=== PATIENT | female | born 1945 | race Caucasian/White ===

== ENCOUNTER → 2017-02-06 | Outpatient (CLI) | payer MEDICARE ==
[~2017-02-06] MED LIST: ASPI-496 PO; CALC-451 PO; CBD TP; CHOL20003 PO; CITA40TA5 PO; DIAZ5TAB PO; HYDR-3138 PO; LACT1CAP40 PO; LISI5TAB7 PO; TRIA1CAP3 PO
== END | disposition home or self-care (01) ==
LOC: LAB 12:09
PROVIDERS: ATTEND Nurse Practitioner Family
DX: C50.919 Malignant neoplasm of unspecified site of unspecified female breast (principal); F41.9 Anxiety disorder, unspecified; I10 Essential (primary) hypertension; M19.90 Unspecified osteoarthritis, unspecified site; R94.6 Abnormal results of thyroid function studies
CPT/HCPCS: 36415; 80061; 82306; 83036; 84436; 84443; 84481; 85025

== ENCOUNTER → 2017-02-06 | Outpatient (CLI) | payer MEDICARE ==
[2017-02-06 12:44] LABS: BLOOD UREA NITROGEN 14 mg/dL (7-18)
[2017-02-06 12:47] LABS: ASPARTATE AMINO TRANSFERASE 23 U/L (15-37)
== END | disposition home or self-care (01) ==
LOC: STAR 10:45
PROVIDERS: ATTEND Surgery
DX: Z01.818 Encounter for other preprocedural examination (principal); D05.12 Intraductal carcinoma in situ of left breast
CPT/HCPCS: 36415; 80053; 93005

== ENCOUNTER 2017-02-17 10:36 | Observation (INO) | payer MEDICARE ==
[2017-02-06 11:36] VITALS: BP 147/84
[~2017-02-17] VITALS: Ht 154.9 cm; Wt 72.8 kg
[2017-02-17] MEDS ORDERED: LACTATED RINGERS 1,000 ML IV SCH (10:59)
[2017-02-17] MEDS ORDERED: LIDOCAINE 1%, 2ML SQ PRN (11:00)
[2017-02-17] MEDS ORDERED: SODIUM BICARBONATE 4.2%, 5ML ONE (12:05)
[2017-02-17] MEDS ORDERED: LIDOCAINE 1%, 20ML ONE (12:05)
[2017-02-17] MEDS ORDERED: BUPIVACAINE/PF 0.25% ONE (13:26)
[2017-02-17] MEDS ORDERED: FENTANYL PF 250 MCG/5ML ONE (13:30)
[2017-02-17] MEDS ORDERED: MIDAZOLAM 1 MG/ML, 2ML ONE (13:30)
[2017-02-17] MEDS ORDERED: CEFAZOLIN 1,000 MG ONE ×2 (13:41→13:54)
[2017-02-17] MEDS ORDERED: ISOSULFAN BLUE 10 MG/ML, 5ML IV ONE (13:41)
[2017-02-17] MEDS ORDERED: GENTAMICIN 80 MG/2 ML ONE (13:42)
[2017-02-17] MEDS ORDERED: BUPIVACAINE/PF-EPI 0.5% 1:200K ONE (13:42)
[2017-02-17] MEDS ORDERED: BACITRACIN 50,000 UNIT ONE (13:42)
[2017-02-17] MEDS ORDERED: PROPOFOL 10 MG/ML, 20ML ONE (13:54)
[2017-02-17] MEDS ORDERED: ONDANSETRON 2MG/ML, 2ML ONE (13:54)
[2017-02-17] MEDS ORDERED: NEOSTIGMINE 1 MG/ML, 10ML ONE (13:54)
[2017-02-17] MEDS ORDERED: ROCURONIUM 10 MG/ML ONE (13:54)
[2017-02-17] MEDS ORDERED: GLYCOPYRROLATE 0.2MG/1ML ONE (13:54)
[2017-02-17] MEDS ORDERED: DEXAMETHASONE 4 MG/ML, 1ML ONE (13:54)
[2017-02-17] MEDS ORDERED: HYDROmorphone 1 MG/ML, 1ML ONE (14:54)
[2017-02-17] MEDS ORDERED: MEPERIDINE/PF 25MG/0.5ML IVPush PRN (16:30)
[2017-02-17] MEDS ORDERED: hydrALAzine 20 MG/ML, 1ML IV PRN ×2 (16:30→20:30)
[2017-02-17] MEDS ORDERED: EPHEDRINE 50 MG/ML, 1ML IVPush PRN (16:30)
[2017-02-17] MEDS ORDERED: PROMETHAZINE 25 MG/ML, 1ML IV PRN (16:30)
[2017-02-17] MEDS ORDERED: LABETALOL 5MG/ML, 20ML IV PRN (16:30)
[2017-02-17] MEDS ORDERED: ONDANSETRON 2MG/ML, 2ML IVPush PRN (16:30)
[2017-02-17] MEDS ORDERED: OXYcodone 5 MG/5 ML ORAL.SOL UDC PO PRN (16:30)
[2017-02-17] MEDS ORDERED: MIDAZOLAM 1 MG/ML, 2ML IV PRN (16:30)
[2017-02-17] MEDS ORDERED: HYDROcodone/APAP 7.5-325MG/15ML UDC PO PRN (16:30)
[2017-02-17] MEDS ORDERED: ACETAMINOPHEN 325 MG TABLET PO PRN (16:30)
[2017-02-17] MEDS ORDERED: OXYcodone 5 MG/5 ML ORAL.SOL UDC ONE (17:06)
[2017-02-17] MEDS ORDERED: FENTANYL PF 100 MCG/2ML ONE (17:06)
[2017-02-17] MEDS: FENTANYL PF 100 MCG/2ML IV PRN ×2 (17:10→17:15)
[2017-02-17] MEDS ORDERED: HYDROmorphone 2 MG/ML, 1ML ONE (17:25)
[2017-02-17] MEDS: HYDROmorphone 1 MG/ML, 1ML IV PRN ×2 (17:28→17:41)
[2017-02-17 19:50] VITALS: BP 136/57
[2017-02-17] MEDS ORDERED: ONDANSETRON 2MG/ML, 2ML IV PRN (20:30)
[2017-02-17] MEDS ORDERED: ENALAPRILAT 1.25 MG/ML, 2ML IV PRN (20:30)
[2017-02-17] MEDS ORDERED: DIPHENHYDRAMINE 25 MG CAPSULE PO PRN (20:30)
[2017-02-17] MEDS ORDERED: DIPHENHYDRAMINE 50 MG/ML, 1ML IV PRN (20:30)
[2017-02-17] MEDS ORDERED: POTASSIUM CHLORIDE 20 MEQ in D5%-0.45% NACL 1,000 ML IV SCH (20:30)
[2017-02-17] MEDS ORDERED: SODIUM CHLORIDE FLUSH 10ML SYR IVF SCH (21:00)
[2017-02-17] MEDS: CEFAZOLIN PMX 2GM/50ML 50 ML IVPB SCH (21:15)
[2017-02-17 23:11] VITALS: BP 151/77
[2017-02-17] MEDS: morphine SULFATE 10 MG/ML, 1ML IV PRN (23:15)
[2017-02-18] MEDS: morphine SULFATE 10 MG/ML, 1ML IV PRN ×4 (00:28→08:38)
[2017-02-18] MEDS: SODIUM CHLORIDE FLUSH 10ML SYR IVF SCH ×2 (00:33→08:40)
[2017-02-18] MEDS ORDERED: D5%-0.45NACL+KCL 20MEQ 1,000 ML IV SCH (04:00)
[2017-02-18 04:19] VITALS: BP 144/82
[2017-02-18] MEDS: CEFAZOLIN PMX 2GM/50ML 50 ML IVPB SCH (05:36)
[2017-02-18] MEDS ORDERED: ASPIRIN 81 MG TABLET EC PO SCH (06:00)
[2017-02-18 07:15] VITALS: BP 126/81
[2017-02-18] MEDS ORDERED: CITALOPRAM 20 MG TABLET PO SCH (09:00)
[2017-02-18] MEDS ORDERED: LACTOBACILLUS CHEW TABLET PO SCH (09:00)
[2017-02-18] MEDS ORDERED: DIAZEPAM 5 MG TABLET PO SCH (09:00)
[2017-02-18] MEDS ORDERED: ENOXAPARIN 40 MG/0.4 ML SQ SCH (09:00)
[2017-02-18] MEDS ORDERED: TRIAMTERENE-HCTZ 37.5/25 MG TABLET PO SCH (09:00)
[2017-02-18] MEDS ORDERED: LISINOPRIL 5 MG TABLET PO SCH (09:00)
== END 2017-02-18 14:20 | disposition home or self-care (01) ==
LOC: OUT 10:36 → EDSTATUS 13:00 → ORIP 18:41 → 4NOR 19:00
PROVIDERS: ADMIT Surgery; ATTEND Surgery
DX: D05.12 Intraductal carcinoma in situ of left breast (principal); Z40.01 Encounter for prophylactic removal of breast
CPT/HCPCS: 19301; 38525; 38792; 88307; 88333; 96365; 96372; 96375; 96376; A9541; C1729; C1762; G0378; J0690; J1100; J1170; J1200; J1580; J1650; J2250; J2270; J2405; J2704; J2710; J3010; J3480; J3490; J7120

== ENCOUNTER → 2017-03-31 | Outpatient (CLI) | payer MEDICARE | END | disposition home or self-care (01) | LOC: LAB 09:02 | PROVIDERS: ATTEND Plastic Surgery | DX: Z01.812 Encounter for preprocedural laboratory examination (principal); I10 Essential (primary) hypertension | CPT/HCPCS: 36415; 85025 ==

== ENCOUNTER 2017-08-06 05:42 | Day surgery (SDC) | payer MEDICARE ==
[2017-08-04 15:45] LABS: ASPARTATE AMINO TRANSFERASE 26 U/L (15-37); BLOOD UREA NITROGEN 18 mg/dL (7-18)
[~2017-08-06] VITALS: Ht 154.9 cm; Wt 72.9 kg
[~2017-08-06 05:42] MED LIST changes: +CHOL2000 PO; -CHOL20003 PO; -HYDR-3138 PO; +HYDR-3237 PO; +MULT-717 PO
[2017-08-06] MEDS ORDERED: LACTATED RINGERS 1,000 ML IV SCH (06:11)
[2017-08-06] MEDS ORDERED: GENTAMICIN 80 MG/2 ML ONE (06:12)
[2017-08-06] MEDS ORDERED: CEFAZOLIN 1,000 MG ONE ×3 (06:12→06:37)
[2017-08-06] MEDS ORDERED: BUPIVACAINE/PF 0.5% ONE (06:13)
[2017-08-06] MEDS ORDERED: BACITRACIN 50,000 UNIT ONE (06:13)
[2017-08-06] MEDS ORDERED: EPINEPHRINE 1 MG/ML, 1ML ONE (06:13)
[2017-08-06 06:15] VITALS: BP 114/79
[2017-08-06] MEDS ORDERED: HYDR-3237 PO (06:15)
[2017-08-06] MEDS ORDERED: MIDAZOLAM 1 MG/ML, 2ML ONE (06:30)
[2017-08-06] MEDS ORDERED: KETAMINE 10 MG/ML, 20ML ONE (06:30)
[2017-08-06] MEDS ORDERED: FENTANYL PF 100 MCG/2ML ONE ×2 (06:31→08:11)
[2017-08-06] MEDS ORDERED: PROPOFOL 10 MG/ML, 20ML ONE (06:33)
[2017-08-06] MEDS ORDERED: ONDANSETRON 2MG/ML, 2ML ONE (06:36)
[2017-08-06] MEDS ORDERED: LIDOCAINE-MPF 2% ,5ML ONE (06:36)
[2017-08-06] MEDS ORDERED: DEXAMETHASONE 4 MG/ML, 1ML ONE ×2 (06:36)
[2017-08-06] MEDS ORDERED: LIDOCAINE GEL 2%, 5ML ONE (06:51)
[2017-08-06] MEDS ORDERED: PROMETHAZINE 25 MG/ML, 1ML IV PRN (07:00)
[2017-08-06] MEDS ORDERED: hydrALAzine 20 MG/ML, 1ML IV PRN (07:00)
[2017-08-06] MEDS ORDERED: LABETALOL 5MG/ML, 20ML IV PRN (07:00)
[2017-08-06] MEDS ORDERED: HYDROmorphone 1 MG/ML, 1ML IV PRN (07:00)
[2017-08-06] MEDS ORDERED: ONDANSETRON 2MG/ML, 2ML IVPush PRN (07:00)
[2017-08-06] MEDS ORDERED: OXYcodone 5 MG/5 ML ORAL.SOL UDC PO PRN (07:00)
[2017-08-06] MEDS ORDERED: ACETAMINOPHEN 325 MG TABLET PO PRN (07:00)
[2017-08-06] MEDS ORDERED: HYDROcodone/APAP 7.5-325MG/15ML UDC PO PRN (07:00)
[2017-08-06] MEDS ORDERED: HYDROmorphone 1 MG/ML, 1ML ONE ×2 (07:21→08:33)
[2017-08-06] MEDS ORDERED: LABETALOL 5MG/ML, 20ML ONE (08:08)
[2017-08-06] MEDS ORDERED: ACETAMINOPHEN 650 MG/20.3 ML UDC ONE (08:10)
[2017-08-06] MEDS ORDERED: OXYcodone 5 MG/5 ML ORAL.SOL UDC ONE (08:11)
[2017-08-06] MEDS: FENTANYL PF 100 MCG/2ML IV PRN ×2 (08:14→08:20)
== END 2017-08-06 10:25 ==
LOC: OUT 05:42
PROVIDERS: ATTEND Plastic Surgery
DX: T85.898D Other specified complication of other internal prosthetic devices, implants and grafts, subsequent encounter (principal); F32.9 Major depressive disorder, single episode, unspecified; I10 Essential (primary) hypertension; Y83.8 Other surgical procedures as the cause of abnormal reaction of the patient, or of later complication, without mention of misadventure at the time of the procedure; Z85.3 Personal history of malignant neoplasm of breast
CPT/HCPCS: 19357; 36415; 80053; 93005; C1729; J0171; J0690; J1100; J1170; J1580; J2250; J2405; J2704; J3010; J3490; J7120

== ENCOUNTER 2020-12-24 12:42 | Emergency (ER) | payer MEDICARE ==
[~2020-12-24] VITALS: Ht 154.9 cm; Wt 72.3 kg
--- NOTE | 2020-12-24 13:39 | NUR ---
C/O PAIN TO POSTERIOR LT KNEE X "A COUPLE OF WEEKS". DENIES TRAUMA, RECENT TRAVEL. ADMITS TO BEING MORE SEDENTARY. TOOK "OLD HYDROCODONE" IN THE MIDDLE OF THE NIGHT. DENIES PAIN CURRENTLY. + ROM RT HIP, KNEE, FOOT. PEDAL PULSES STRONG & REG BILAT. LT LEG SLIGHTLY WARMER THAN RT. HX: LT KNEE PARTIAL REPLACEMENT, LT LEG DVT "ABOUT 6 YRS AGO".
[2020-12-24] MEDS ORDERED: CITA20TA6 PO (13:49)
[2020-12-24 14:30] VITALS: BP 141/73
--- NOTE | 2020-12-24 14:51 | NUR ---
PT LYING QUIETLY ON GURNEY, USING CELL PHONE, STATES SHE'S READY TO GO HOME.
--- NOTE | 2020-12-24 15:33 | NUR ---
PT FULLY DRESSED, SITTING ON CHAIR IN ROOM, AWAITING DC.
== END 2020-12-24 15:56 | disposition home or self-care (01) ==
LOC: ED 15:30
DX: I80.02 Phlebitis and thrombophlebitis of superficial vessels of left lower extremity (principal)
CPT/HCPCS: 99284